=== PATIENT | female | born 1975 | race Two or more races ===

== ENCOUNTER 2024-12-17 19:42 | Emergency (ER) | payer OTHER ==
[~2024-12-17] VITALS: Ht 157.5 cm; Wt 99.8 kg
[2024-12-17 19:42] VITALS: O2SAT 97
[2024-12-17] MEDS ORDERED: CEphaleXIN 500 MG CAPSULE ONE (20:20)
[2024-12-17] MEDS ORDERED: SULFAMETH/TRIMETH 800/160 MG TABLET ONE (20:20)
[2024-12-17] MEDS: SULFAMETH/TRIMETH 800/160 MG TABLET PO ONE (20:23)
[2024-12-17] MEDS: CEphaleXIN 500 MG CAPSULE PO ONE (20:23)
[2024-12-17] MEDS ORDERED: LORATADINE 10 MG TABLET ONE (20:24)
[2024-12-17] MEDS ORDERED: CEPH500C2 PO (20:25)
[2024-12-17] MEDS ORDERED: LORA10CA PO (20:25)
[2024-12-17] MEDS ORDERED: SULF1TAB48 PO (20:25)
[2024-12-17] MEDS: LORATADINE 10 MG TABLET PO SCH (20:25)
== END 2024-12-17 20:49 | disposition home or self-care (01) ==
LOC: ER 20:00
DX: L03.116 Cellulitis of left lower limb (principal); I10 Essential (primary) hypertension
CPT/HCPCS: A4606; A4663